=== PATIENT | female | born 1970 | race Caucasian/White ===

== ENCOUNTER 2017-08-08 07:31 | Emergency (ER) | payer MEDICAID ==
[~2017-08-08] VITALS: Ht 172.7 cm; Wt 47.0 kg
[~2017-08-08 07:31] MED LIST: ALBU6.7H INH; SPAC1MIS6; ZITH250T PO
[2017-08-08 07:32] VITALS: BP 165/80; PULSE 86; RESP 16; TEMP 99.6; O2SAT 99
[2017-08-08] MEDS ORDERED: ZITHTAB PO (07:52)
[2017-08-08] MEDS ORDERED: POLY10O EACH EYE (07:52)
--- NOTE | 2017-08-08 07:53 | PD ---
HPI Chief Complaint: Eye Problems/Injury Time Seen by Provider: 07:41 Travel History International Travel<30 days: No Contact w/Intl Traveler<30days: No Traveled to known affect area: No History of Present Illness HPI This is a 47-year-old female who presents the ER complaining of red eyes since yesterday. Patient was cleaning her house and had some dust blow into her eyes and since then it is swollen and teary. She also complained of a puffy eyes on both sides she denies any fever or chills and denies any pain when she moves her eyes. There is no itchiness in her eyes or discharge although she reports yellow crusts from her eyes that occur in the morning easily come off with a warm towel. No sick contacts or recent travel. She did not have any eye problems before. There is no tenderness when she presses on her eye or move her eyes around she denies any blurry vision or headache. PFSH Past Medical History Medical History: Denies Significant Hx Diminished Hearing: No Tetanus Vaccination: > 5 Years Influenza Vaccination: No ?: Not Menopausal: Yes Past Surgical History Section: Yes (X's 2) Gynecologic Surgery: Yes (Uterine ablation ) Social History Alcohol Use: Yes (Once a month) Tobacco Use: Yes (1 PPD) Substance Use: Yes (Marijuana) Allergies-Medications (Allergen,Severity, Reaction): Coded Allergies: No Known Allergies (Verified Adverse Reaction, Unknown, 08/08/17) Reported Meds & Prescriptions Reported Meds & Active Scripts Active Polytrim Opth Drops (Polymyxin/Trimethoprim Sulfate) 10,000-0.1 Unit/Ml-% Soln 1 Drop EACH EYE Q6HR 5 Days Zithromax Z-Charan (Azithromycin) 250 Mg Dspk 250 Mg PO DIRECTED 500 MG (2 tabs) day 1, then 1 tab days 2-5. Review of Systems Except as stated in HPI: all other systems reviewed are Neg Physical Exam Narrative GENERAL: Well-nourished, well-developed patient. SKIN: Focused skin assessment warm/dry. HEAD: Normocephalic. EYES: Erythema of the conjunctiva bilaterally, no discharge, no tenderness on palpation of the globe, pupils equal and reactive bilaterally, no scleral icterus. NECK: Supple, trachea midline. No JVD or lymphadenopathy. CARDIOVASCULAR: Regular rate and rhythm without murmurs, gallops, or rubs. RESPIRATORY: Breath sounds equal bilaterally. No accessory muscle use. GASTROINTESTINAL: Abdomen soft, non-tender, nondistended. MUSCULOSKELETAL: No cyanosis, or edema. BACK: Nontender without obvious deformity. No CVA tenderness. Data Data Last Documented VS Vital Signs Date Time Temp Pulse Resp B/P (MAP) Pulse Ox O2 Delivery O2 Flow Rate FiO2 08/08/17 07:40 20 08/08/17 07:32 99.6 86 165/80 (108) 99 Orders Orders Ed Discharge Order (08/08/17 07:53) MDM Medical Decision Making Medical Screen Exam Complete: Yes Emergency Medical Condition: Yes Differential Diagnosis Conjunctivitis, foreign body. Narrative Course This is a 47 female who came to the ER complaining of red eyes teary for the last 24 hours. Patient denies any tenderness, pupils equal reactive to light bilaterally, there is no tenderness on palpation of the eyes or ocular muscle movement, physical examination is consistent with conjunctivitis. I believe this patient will benefit from a topical antibiotics and give her a referral for ophthalmology for further evaluation and follow-up. She understands the plan of care and stable to be discharged. Diagnosis Primary Impression: Conjunctivitis Qualified Codes: H10.33 - Unspecified acute conjunctivitis, bilateral Referrals: Alisia Crawford MD Scripts Polymyxin B-Trimethoprim Opth Drops (Polytrim Opth Drops) 10,000-0.1 Unit/Ml-% Soln 1 DROP EACH EYE Q6HR for Mgmt Bacterial Infection for 5 Days, #1 BOTTLE 0 Refills Prov: Chino Weiss MD 08/08/17 Azithromycin (Zithromax Z-Charan) 250 Mg Dspk 250 MG PO DIRECTED for Infection, #1 DSPK 0 Refills 500 MG (2 tabs) day 1, then 1 tab days 2-5. Prov: Chino Weiss MD 08/08/17 Disposition: 01 DISCHARGE HOME Condition: Stable Chino Weiss MD Aug 08, 2017 07:53
== END 2017-08-08 08:18 | disposition home or self-care (01) ==
LOC: PHED 07:31
DX: H10.33 Unspecified acute conjunctivitis, bilateral (principal); F17.210 Nicotine dependence, cigarettes, uncomplicated
CPT/HCPCS: 99283

== ENCOUNTER 2017-10-19 22:24 | Emergency (ER) | payer MEDICAID, OTHER ==
[~2017-10-19] VITALS: Ht 154.9 cm; Wt 55.0 kg
[~2017-10-19 22:24] MED LIST changes: -ALBU6.7H INH; +POLY10O EACH EYE; -SPAC1MIS6; -ZITH250T PO; +ZITHTAB PO
[2017-10-19 22:29] VITALS: RESP 14
[2017-10-19 22:33] VITALS: BP 166/108; PULSE 98; RESP 14; TEMP 98.2; O2SAT 99
--- NOTE | 2017-10-19 22:44 | PD ---
HPI Chief Complaint: OD/ Ingestion Time Seen by Provider: 22:32 Travel History International Travel<30 days: No Contact w/Intl Traveler<30days: No Traveled to known affect area: No History of Present Illness HPI pt did " a shot of heroin and thats why she stopped breathing" pt was givne 4 mg Nasal spray by Fire Dept and then 0.4 mg IVP when paramedics arrived to IV line and treat , then pt awoke and has normal mentation in the ER , denies chest pain NO head trauma , denies renal lung cardiac other med Hx . pt cooperative and alert in ER PFSH Past Medical History Diminished Hearing: No ?: Not Menopausal: Yes Past Surgical History Section: Yes (X's 2) Gynecologic Surgery: Yes (Uterine ablation ) Social History Alcohol Use: Yes (Once a month) Tobacco Use: Yes (1 PPD) Substance Use: Yes (Marijuana, heroin) Allergies-Medications (Allergen,Severity, Reaction): Coded Allergies: Tetracyclines (Verified Allergy, Unknown, 10/19/17) Reported Meds & Prescriptions Reported Meds & Active Scripts Active No Active Prescriptions or Reported Medications Review of Systems Except as stated in HPI: all other systems reviewed are Neg Psychiatric: Positive: Substance Abuse Physical Exam Narrative GENERAL: awake alert and cooperative SKIN: Warm and dry. HEAD: Atraumatic. Normocephalic. EYES: Pupils equal and round. No scleral icterus. No injection or drainage. ENT: No nasal bleeding or discharge. Mucous membranes pink and moist. NECK: Trachea midline. No JVD. CARDIOVASCULAR: Regular rate and rhythm. RESPIRATORY: No accessory muscle use. Clear to auscultation. Breath sounds equal bilaterally. no return of resp depression over 4 hrs observation GASTROINTESTINAL: Abdomen soft, non-tender, nondistended. Hepatic and splenic margins not palpable. MUSCULOSKELETAL: Extremities without clubbing, cyanosis, or edema. No obvious deformities. NEUROLOGICAL: Awake and alert. No obvious cranial nerve deficits. Motor grossly within normal limits. Five out of 5 muscle strength in the arms and legs. Normal speech. PSYCHIATRIC: Appropriate mood and affect; insight and judgment normal. Data Data Last Documented VS Orders Orders Complete Blood Count With Diff (10/19/17 22:32) Comprehensive Metabolic Panel (10/19/17 22:32) Lipase (10/19/17 22:32) Drug Screen, Random Urine (10/19/17 22:32) Alcohol (Ethanol) (10/19/17 22:32) Tylenol (Acetaminophen) (10/19/17 22:32) Urinalysis - C+S If Indicated (10/19/17 22:32) Ed Discharge Order (10/20/17 03:25) Electrocardiogram (10/19/17 22:34) Labs Laboratory Tests Test 10/19/17 22:55 White Blood Count 12.6 TH/MM3 Red Blood Count 4.77 MIL/MM3 Hemoglobin 14.3 GM/DL Hematocrit 43.2 % Mean Corpuscular Volume 90.5 FL Mean Corpuscular Hemoglobin 30.0 PG Mean Corpuscular Hemoglobin Concent 33.2 % Red Cell Distribution Width 14.2 % Platelet Count 323 TH/MM3 Mean Platelet Volume 9.3 FL Neutrophils (%) (Auto) 80.4 % Lymphocytes (%) (Auto) 13.8 % Monocytes (%) (Auto) 5.1 % Eosinophils (%) (Auto) 0.3 % Basophils (%) (Auto) 0.4 % Neutrophils # (Auto) 10.1 TH/MM3 Lymphocytes # (Auto) 1.7 TH/MM3 Monocytes # (Auto) 0.6 TH/MM3 Eosinophils # (Auto) 0.0 TH/MM3 Basophils # (Auto) 0.1 TH/MM3 CBC Comment DIFF FINAL Differential Comment Urine Color YELLOW Urine Turbidity CLEAR Urine pH 6.0 Urine Specific [place] 1.016 Urine Protein 100 mg/dL Urine Glucose (UA) TRACE mg/dL Urine Ketones NEG mg/dL Urine Occult Blood TRACE Urine Nitrite NEG Urine Bilirubin NEG Urine Urobilinogen LESS THAN 2.0 MG/DL Urine Leukocyte Esterase NEG Urine RBC 1 /hpf Urine WBC 4 /hpf Urine Squamous Epithelial Cells 4 /hpf Urine Transitional Epithelial Cells <1 /hpf Urine Bacteria RARE /hpf Urine Hyaline Casts 23 /lpf Urine Granular Casts 8 /lpf Urine Mucus FEW /lpf Microscopic Urinalysis Comment CULT NOT INDICATED Blood Urea Nitrogen 14 MG/DL Creatinine 1.01 MG/DL Random Glucose 151 MG/DL Total Protein 7.3 GM/DL Albumin 3.7 GM/DL Calcium Level 8.5 MG/DL Alkaline Phosphatase 85 U/L Aspartate Amino Transf (AST/SGOT) 15 U/L Alanine Aminotransferase (ALT/SGPT) 26 U/L Total Bilirubin 0.4 MG/DL Sodium Level 138 MEQ/L Potassium Level 3.8 MEQ/L Chloride Level 102 MEQ/L Carbon Dioxide Level 26.8 MEQ/L Anion Gap 9 MEQ/L Estimat Glomerular Filtration Rate 59 ML/MIN Lipase 67 U/L Urine Opiates Screen POS Acetaminophen Level LESS THAN 2.0 MCG/ML Urine Barbiturates Screen NEG Urine Amphetamines Screen POS Urine Benzodiazepines Screen NEG Urine Cocaine Screen POS Urine Cannabinoids Screen NEG Ethyl Alcohol Level LESS THAN 3 MG/DL MDM Medical Decision Making Medical Screen Exam Complete: Yes Emergency Medical Condition: Yes Differential Diagnosis accidental overdose with IV heroin, denies SI or self harm intent. Narrative Course pt observed for 4 hr in ER no return of resp distress or depression safe for discharge I lift [place] [employer] coming to get her Diagnosis Primary Impression: Heroin overdose Qualified Codes: T40.1X1A - Poisoning by heroin, accidental (unintentional), initial encounter Patient Instructions: General Instructions, Narcotic Abuse (ED) Scripts No Active Prescriptions or Reported Meds Addison Coats MD October 19, 2017 22:44
[2017-10-19 23:12] LABS: AUTOMATED NEUTROPHIL # 10.1 TH/MM3 (1.8-7.7); BASOPHIL # 0.1 TH/MM3 (0-0.2); BASOPHIL % 0.4 % (0.0-2.0); EOSINOPHIL % 0.3 % (0.0-4.0); HEMATOCRIT 43.2 % (35.0-46.0); HEMOGLOBIN 14.3 GM/DL (11.6-15.3); LYMPH % 13.8 % (9.0-44.0); LYMPHOCYTE # 1.7 TH/MM3 (1.0-4.8); MEAN CELL VOLUME 90.5 FL (80.0-100.0); MEAN CORPUSCULAR HGB CONC 33.2 % (32.0-36.0); MEAN PLATELET VOLUME 9.3 FL (7.0-11.0); MONO % 5.1 % (0.0-8.0); MONOCYTE # 0.6 TH/MM3 (0-0.9); NEUT % 80.4 % (16.0-70.0); PLATELET COUNT 323 TH/MM3 (150-450); RED BLOOD COUNT 4.77 MIL/MM3 (4.00-5.30); RED CELL DISTRIBUTION WIDTH 14.2 % (11.6-17.2); WHITE BLOOD COUNT 12.6 TH/MM3 (4.0-11.0)
[2017-10-19 23:32] LABS: BACTERIA, URINE RARE /hpf; BILIRUBIN, URINE NEG (NEG); BLOOD, URINE TRACE (NEG); GLUCOSE,URINE TRACE mg/dL (NEG); HYALINE CAST, URINE 23 /lpf (RARE); KETONE, URINE NEG (NEG); MUCUS URINE FEW /lpf (OCC); NITRITE,URINE NEG (NEG); SQUAMOUS EPITHELIAL CELL URINE 4 /hpf (0-5); TRANSITIONAL EPI CELLS, URINE <1 /hpf; URINE COLOR YELLOW (YELLW/STRAW); URINE LEUKOCYTE ESTERASE NEG (NEG)
[2017-10-19 23:39] LABS: ALBUMIN 3.7 GM/DL (3.4-5.0); ALKALINE PHOSPHATASE 85 U/L (45-117); ALT (GPT) 26 U/L (10-53); AST (GOT) 15 U/L (15-37); BICARBONATE 26.8 MEQ/L (21.0-32.0); BLOOD UREA NITROGEN 14 MG/DL (7-18); CALCIUM 8.5 MG/DL (8.5-10.1); CHLORIDE 102 MEQ/L (98-107); CREATININE 1.01 MG/DL (0.50-1.00); GLOMERULAR FILTRATION RATE 59 ML/MIN (>89); GLUCOSE,RANDOM 151 MG/DL (74-106); SODIUM (NA) 138 MEQ/L (136-145); TOTAL BILIRUBIN ADULT 0.4 MG/DL (0.2-1.0); TOTAL PROTEIN 7.3 GM/DL (6.4-8.2)
[2017-10-19 23:40] LABS: ACETAMINOPHEN LESS THAN 2.0 MCG/ML (10.0-30.0)
[2017-10-20 00:03] VITALS: BP 155/100; PULSE 90; RESP 14; O2SAT 99
[2017-10-20 01:00] VITALS: BP 149/89; PULSE 86; RESP 14; O2SAT 97
[2017-10-20 02:00] VITALS: BP 148/89; PULSE 84; RESP 14; O2SAT 97
--- NOTE | 2017-10-21 08:11 | EKG ---
Date Performed: 10/19/2017 Time Performed: 22:34:49 PTAGE: 47 years EKG: Sinus rhythm POSSIBLE LEFT ATRIAL ENLARGEMENT LEFT VENTRICULAR HYPERTROPHY AND ST-T CHANGE ABNORMAL ECG PREVIOUS TRACING : 08/14/2014 10.11 DOCTOR: Glenna Beckford Interpretating Date/Time 10/21/2017 08:10:14
== END 2017-10-20 03:38 | disposition home or self-care (01) ==
LOC: NEPE 22:24
DX: T40.1X1A Poisoning by heroin, accidental (unintentional), initial encounter (principal); F17.200 Nicotine dependence, unspecified, uncomplicated; R94.31 Abnormal electrocardiogram [ECG] [EKG]
CPT/HCPCS: 80053; 80307; 81001; 83690; 85025; 93005; 99283